=== PATIENT | female | born 1990 | race Caucasian/White ===

== ENCOUNTER 2017-12-29 22:55 | Emergency (ER) | payer OTHER, BC ==
[2017-12-29] MEDS ORDERED: Bupivacaine 0.5% 10 ML SDV INJECT ONE (23:14)
[2017-12-29] MEDS ORDERED: Lidocaine 1% with EPINEPHrine 1:100,000 20 ML MDV INJECT ONE (23:14)
[2017-12-29] MEDS ORDERED: Diphtheria,Pertussis(Acell),Tetanus Vaccine 0.5 ML SDV IM ONE (23:55)
--- NOTE | 2017-12-30 00:09 | EDM.PDOC ---
ED HPI GENERAL MEDICAL PROBLEM - General Chief Complaint: Laceration Stated Complaint: CUT ON LEFT KNEE/WORK RELATED Time Seen by Provider: 12/29/17 23:08 Source of Information: Reports: Patient, Other (Friend) History Limitations: Reports: No Limitations - History of Present Illness INITIAL COMMENTS - FREE TEXT/NARRATIVE: The patient states that she accidentally snagged the medial aspect of her proximal left leg on a piece of metal as she was getting into a van around 22: 40 tonight. She presents with a laceration to her proximal medial left leg. She is otherwise uninjured. The patient believes that her tetanus vaccination is up-to-date. The patient's PCP is in [place]. The patient does not recall their name. 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 ED EXAM, SKIN/RASH Exam: See Below Exam Limited By: No Limitations General Appearance: Alert, WD/WN, No Apparent Distress Extremities: Other (Approximately 1.5 cm linear laceration to the medial proximal left leg. Minimal bleeding. Wound appears to be clean. Neurovascular status of the left lower extremity is intact.) ED SKIN PROCEDURES - Laceration/Wound Repair Left Leg Lac/Wound length In cm: 1.5 Appearance: Subcutaneous, Linear, Clean Distal NVT: Neuro & Vascular Intact, No Tendon Injury Anesthetic Type: Local Local Anesthesia - Lidocaine (Xylocaine): 1% with EPI (50:50 admixture) Local Anesthesia - Bupivicaine (Marcaine): 0.5% Plain (50:50 admixture) Local Anesthetic Volume: 2cc Skin Prep: Providone-Iodine (Betadine) Exploration/Debridement/Repair: Wound Explored, In a Bloodless Field, Explored to Base, No Foreign Material Found, Wound Margins Revised Closed with: Sutures Suture Size: 3-0 # of Sutures: 5 Suture Type: Nylon (Ethilon), Running Drain Placement: No Sterile Dressing Applied: Nurse Tetanus Status Addressed: Yes Complications: No Course - Vital Signs Last Recorded V/S: Last Vital Signs Temp 37.3 C 12/29/17 23:06 Pulse 84 12/29/17 23:06 Resp 16 12/29/17 23:06 BP 136/101 H 12/29/17 23:06 Pulse Ox 100 12/29/17 23:06 - Orders/Labs/Meds Orders: Active Orders 24 hr Category Date Time Status Vaccines to be Administered [RC] PER UNIT ROUTINE Care 12/29/17 23:55 Active Meds: Medications Discontinued Medications Generic Name Dose Route Start Last Admin Trade Name Verito PRN Reason Stop Dose Admin Bupivacaine HCl 10 ml 12/29/17 23:14 12/30/17 00:02 Sensorcaine-Mpf 0.5% INJECT 12/29/17 23:15 10 ml ONETIME ONE Administration Diphtheria/Tetanus/Acell Pertussis 0.5 ml 12/29/17 23:55 12/30/17 00:00 Adacel IM 12/29/17 23:56 0.5 ml .ONCE ONE Administration Lidocaine/Epinephrine 20 ml 12/29/17 23:14 12/30/17 00:02 Xylocaine 1% With Epinephrine 1:100,000 INJECT 12/29/17 23:15 20 ml ONETIME ONE Administration - Re-Assessments/Exams Free Text/Narrative Re-Assessment/Exam: 12/30/17 00:05 The patient reconsidered, and requested a tetanus vaccination. She was given one during this ED visit. The patient's wound was closed with 5 running sutures, using 3-0 Ethilon. She tolerated the procedure well. Wound care instructions were given. Departure - Departure Time of Disposition: 00:06 Disposition: Home, Self-Care 01 Condition: Good Clinical Impression: Laceration of left leg - Discharge Information *PRESCRIPTION DRUG MONITORING PROGRAM REVIEWED*: Not Applicable *COPY OF PRESCRIPTION DRUG MONITORING REPORT IN PATIENT AIDEE: Not Applicable Referrals: PCP,Not In Area [Primary Care Provider] - Forms: ED Department Discharge Additional Instructions: You were seen in the emergency room after cutting your left leg on a piece of metal as you were getting into a van. You received a tetanus vaccination in the ER. Your wound was closed with 5-0 running sutures. Keep the wound clean with ordinary soap and water, however, you should not soak the wound, such as in the bath or by swimming. Pat dry, then leave alone. Do not apply antibiotic ointment. You may put a Band-Aid over the wound, if you wish. If the wound should become dirty, clean and dry it. Take [id number] Tylenol or ibuprofen as needed for discomfort. The sutures should be ready for removal on 01/05/2018, or Friday, 2017. This can be done at a walk-in clinic, by a nurse at your doctor's office, or in an ER. If any other problems, please do not hesitate to return to the ER. - My Orders Last 24 Hours: My Active Orders 12/29/17 23:55 Vaccines to be Administered [RC] PER UNIT ROUTINE - Assessment/Plan Last 24 Hours: My Active Orders 12/29/17 23:55 Vaccines to be Administered [RC] PER UNIT ROUTINE
== END 2017-12-30 00:13 | disposition home or self-care (01) ==
LOC: JD.ED 22:55
DX: S81.812A Laceration without foreign body, left lower leg, initial encounter (principal); W22.8XXA Striking against or struck by other objects, initial encounter; Z23 Encounter for immunization; Z88.6 Allergy status to analgesic agent
CPT/HCPCS: 12001; 90471; 90715; 99283; J3490

== ENCOUNTER 2020-01-13 19:19 | Emergency (ER) | payer BC, OTHER ==
[2020-01-13] MEDS ORDERED: fentaNYL 100 MCG/2 ML SDV IVPUSH ONE ×4 (19:41→23:34)
[2020-01-13] MEDS ORDERED: Ondansetron 4 MG/2 ML SDV IVPUSH ONE ×2 (19:41→23:57)
[2020-01-13] MEDS ORDERED: Dextrose 5%-0.9% NaCl 1,000 ML IV SCH (19:45)
--- NOTE | 2020-01-13 19:46 | EDM.PDOC ---
ED HPI GENERAL MEDICAL PROBLEM - General Chief Complaint: Abdominal Pain Stated Complaint: UPPER ABDOMINAL PAIN FROM WHERE A TUMOR WAS REMOVE Time Seen by Provider: 01/13/20 19:40 Source of Information: Reports: Patient, Family (mother ) History Limitations: Reports: No Limitations - History of Present Illness INITIAL COMMENTS - FREE TEXT/NARRATIVE: 29-year-old female presents to the ED for evaluation of right upper quadrant abdominal pain which is something she experiences intermittently for the last 20 years. 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 She had resection of the largest portion of the tumor in her liver but surgeons were unable to clear her out completely. Intermittently since that time she gets flareups of right upper quadrant abdominal pain with associated nausea and vomiting. She states they usually last to 2- 3 hours and then will go away. Often responds to otrin. Sometimes she is treated with IV antibiotics. She has not been seen by for about 10 years. Pain started yesterday and lasted for good 4 hours or more and then let up for about 8 hours and then returned during the night. Patient today has had constant pain with a colicky component. Associated nausea and vomiting almost nonstop of bilious material with dry heaves. She has not been able to keep anything down today. Denies any diarrhea or constipation. Denies feeling short of breath. No fever. Appreciates some chills with the vomiting episodes. Onset: Sudden Onset Date: 01/12/20 (Developed right upper quadrant abdominal pain yesterday but let up last evening for about 8 hours and then came back. Pain is described as constant but also he does have a colicky component.) Duration: Constant, Getting Worse Location: Reports: Abdomen (Right upper quadrant of the abdomen.) Quality: Reports: Ache, Sharp, Stabbing, Throbbing Severity: Moderate (Colicky component as well) Improves with: Reports: None ( to 10) Worsens with: Reports: None Context: Denies: Activity, Exercise, Lifting, Sick Contact, Trauma, Other Associated Symptoms: Reports: Fever/Chills, Loss of Appetite, Malaise, Nausea/Vomiting, Weakness (Intractable nausea and vomiting for over 12 hours. Generalized weakness). Denies: No Other Symptoms, Confusion, Chest Pain, Cough, cough w sputum, Diaphoresis, Headaches (Chills with vomiting.), Seizure, Shortness of Breath, Syncope Treatments INSURANCE SALESPERSON: Reports: Other (see below) (None.) Right Upper Abdomen Pain Score (Numeric/FACES): 9 - Related Data Allergies Allergy/AdvReac Type Severity Reaction Status Date / Time acetaminophen [From Vicodin] Allergy Severe Vomiting Verified 01/13/20 19:42 hydrocodone [From Vicodin] Allergy Severe Vomiting Verified 01/13/20 19:42 hydromorphone [From Dilaudid] Allergy Severe Vomiting Verified 01/13/20 19:42 meperidine [From Demerol] Allergy Severe Vomiting Verified 01/13/20 19:42 morphine Allergy Severe Vomiting Verified 01/13/20 19:42 oxycodone Allergy Severe Vomiting Verified 01/13/20 19:42 pain medications Allergy Nausea Uncoded 12/29/17 23:05 Home Meds: Home Meds Ondansetron [Zofran] 4 mg BUCCAL Q6H PRN #10 tab 01/13/20 [Rx] Past Medical History - Past Surgical History HEENT Surgical History: Reports: Oral Surgery ([place] teeth extraction) GI Surgical History: Reports: Cholecystectomy, Other (See Below) (With resection of a large tumor from her liver at age 9. 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 Denies: Fever, Weight Loss HEENT: Reports: No Symptoms Respiratory: Reports: No Symptoms Cardiovascular: Reports: No Symptoms Endocrine: Reports: Fatigue GI/Abdominal: Reports: Abdominal Pain (See history of present illness.), Decreased Appetite ( bilious material), Nausea, Vomiting (Intractable nausea and vomiting of) : Reports: No Symptoms Musculoskeletal: Reports: No Symptoms Skin: Reports: No Symptoms Neurological: Reports: No Symptoms Psychiatric: Reports: No Symptoms Hematologic/Lymphatic: Reports: No Symptoms Immunologic: Reports: No Symptoms ED EXAM, GI/ABD - Physical Exam Exam: See Below Exam Limited By: No Limitations General Appearance: Alert, WD/WN, Mild Distress, Other Eyes: Bilateral: Normal Appearance (I feel that she has very mild scleral icterus bilaterally.) Throat/Mouth: Normal Inspection, Normal Lips, Normal Oropharynx, Other (Tongue remains moist.) Neck: Normal Inspection, Supple, Non-Tender, Full Range of Motion. No: Lymphadenopathy (L), Lymphadenopathy (R) Respiratory/Chest: No Respiratory Distress, Lungs Clear, Normal Breath Sounds, Chest Non-Tender Cardiovascular: Normal Peripheral Pulses, Regular Rate, Rhythm, No Edema, No Gallop, No Murmur, No Rub GI/Abdominal Exam: Normal Bowel Sounds, Soft, No Organomegaly, No Abnormal Bruit, No Mass, Tender (Under along the medial right costal margin to the midline where her midline laparotomy extends up to. Appears to be significant scar tissue in this area she is very tender along her scar superior to the umbilicus.) Back Exam: Normal Inspection, Full Range of Motion. No: CVA Tenderness (L), CVA Tenderness (R) Extremities: Normal Inspection, Normal Range of Motion, Non-Tender, No Pedal Edema Neurological: Alert, Oriented, CN II-XII Intact, Normal Cognition Psychiatric: Normal Affect, Normal Mood, Other (She appears to be in a good deal of discomfort.) Skin Exam: Warm, Dry, Intact, Normal Color, No Rash Course - Vital Signs Last Recorded V/S: Last Vital Signs Temp 37.2 C 01/13/20 19:48 Pulse 76 01/13/20 19:48 Resp 28 H 01/13/20 19:48 BP 116/49 L 01/13/20 19:48 Pulse Ox 100 01/13/20 19:48 Orthostatic Blood Pressure [ 119/77 Standing] - Orders/Labs/Meds Orders: Active Orders 24 hr Category Date Time Status Dextrose 5%-0.9% NaCl [Dextrose 5%-Normal Saline] 1,000 Med 01/13/20 19:45 Active ml IV ASDIRECTED Medication Orders Dextrose/Sodium Chloride (Dextrose 5%-Normal Saline) 1,000 mls @ 999 mls/hr IV ASDIRECTED GIVOANI Last Admin: 01/13/20 20:03 Dose: 999 mls/hr Documented by: STACY Labs: Laboratory Tests 01/13/20 01/13/20 01/13/20 Range/Units 20:00 20:00 20:00 WBC 8.86 (3.98-10.04) K/mm3 RBC 4.27 (3.98-5.22) M/mm3 Hgb 12.9 (11.2-15.7) gm/dl Hct 38.4 (34.1-44.9) % MCV 89.9 (79.4-94.8) fl MCH 30.2 (25.6-32.2) pg MCHC 33.6 (32.2-35.5) g/dl RDW Std Deviation 40.8 (36.4-46.3) fL Plt Count 348 (182-369) K/mm3 MPV 10.9 (9.4-12.3) fl Neut % (Auto) 73.4 H (34.0-71.1) % Lymph % (Auto) 18.8 L (19.3-51.7) % Garvin % (Auto) 7.0 (4.7-12.5) % Eos % (Auto) 0.5 L (0.7-5.8) Baso % (Auto) 0.1 (0.1-1.2) % Neut # (Auto) 6.50 H (1.56-6.13) K/mm3 Lymph # (Auto) 1.67 (1.18-3.74) K/mm3 Garvin # (Auto) 0.62 H (0.24-0.36) K/mm3 Eos # (Auto) 0.04 (0.04-0.36) K/mm3 Baso # (Auto) 0.01 (0.01-0.08) K/mm3 Sodium 139 (136-145) mEq/L Potassium 3.4 L (3.5-5.1) mEq/L Chloride 104 (98-107) mEq/L Carbon Dioxide 21 (21-32) mEq/L Anion Gap 17.4 H (5-15) BUN 6 L (7-18) mg/dL Creatinine 0.8 (0.55-1.02) mg/dL Est Cr Clr Drug Dosing 94.36 mL/min Estimated GFR (MDRD) > 60 (>60) mL/min BUN/Creatinine Ratio 7.5 L (14-18) Glucose 89 (74-106) mg/dL Calcium 8.3 L (8.5-10.1) mg/dL Total Bilirubin 1.3 H (0.2-1.0) mg/dL AST 17 (15-37) U/L ALT 14 (14-59) U/L Alkaline Phosphatase 38 L (46-116) U/L C-Reactive Protein 0.6 (<1.0) mg/dL Total Protein 7.1 (6.4-8.2) g/dl Albumin 3.5 (3.4-5.0) g/dl Globulin 3.6 gm/dL Albumin/Globulin Ratio 1.0 (1-2) Lipase 74 (73-393) U/L HCG, Qual Negative (NEGATIVE) Urine Color (Yellow) Urine Appearance (Clear) Urine pH (5.0-8.0) Ur Specific [place] (1.005-1.030) Urine Protein (Negative) Urine Glucose (UA) (Negative) Urine Ketones (Negative) Urine Occult Blood (Negative) Urine Nitrite (Negative) Urine Bilirubin (Negative) Urine Urobilinogen (0.2-1.0) Ur Leukocyte Esterase (Negative) Urine RBC (0-5) /hpf Urine WBC (0-5) /hpf Ur Squamous Epith Cells (0-5) /hpf Urine Bacteria (FEW) /hpf Urine Mucus (FEW) /hpf 07/30/20 Range/Units 22:53 WBC (3.98-10.04) K/mm3 RBC (3.98-5.22) M/mm3 Hgb (11.2-15.7) gm/dl Hct (34.1-44.9) % MCV (79.4-94.8) fl MCH (25.6-32.2) pg MCHC (32.2-35.5) g/dl RDW Std Deviation (36.4-46.3) fL Plt Count (182-369) K/mm3 MPV (9.4-12.3) fl Neut % (Auto) (34.0-71.1) % Lymph % (Auto) (19.3-51.7) % Garvin % (Auto) (4.7-12.5) % Eos % (Auto) (0.7-5.8) Baso % (Auto) (0.1-1.2) % Neut # (Auto) (1.56-6.13) K/mm3 Lymph # (Auto) (1.18-3.74) K/mm3 Garvin # (Auto) (0.24-0.36) K/mm3 Eos # (Auto) (0.04-0.36) K/mm3 Baso # (Auto) (0.01-0.08) K/mm3 Sodium (136-145) mEq/L Potassium (3.5-5.1) mEq/L Chloride (98-107) mEq/L Carbon Dioxide (21-32) mEq/L Anion Gap (5-15) BUN (7-18) mg/dL Creatinine (0.55-1.02) mg/dL Est Cr Clr Drug Dosing mL/min Estimated GFR (MDRD) (>60) mL/min BUN/Creatinine Ratio (14-18) Glucose (74-106) mg/dL Calcium (8.5-10.1) mg/dL Total Bilirubin (0.2-1.0) mg/dL AST (15-37) U/L ALT (14-59) U/L Alkaline Phosphatase (46-116) U/L C-Reactive Protein (<1.0) mg/dL Total Protein (6.4-8.2) g/dl Albumin (3.4-5.0) g/dl Globulin gm/dL Albumin/Globulin Ratio (1-2) Lipase (73-393) U/L HCG, Qual (NEGATIVE) Urine Color Yellow (Yellow) Urine Appearance Clear (Clear) Urine pH 7.0 (5.0-8.0) Ur Specific [place] 1.020 (1.005-1.030) Urine Protein Negative (Negative) Urine Glucose (UA) 2+ H (Negative) Urine Ketones 2+ H (Negative) Urine Occult Blood Negative (Negative) Urine Nitrite Negative (Negative) Urine Bilirubin Negative (Negative) Urine Urobilinogen 0.2 (0.2-1.0) Ur Leukocyte Esterase Negative (Negative) Urine RBC 0-5 (0-5) /hpf Urine WBC 0-5 (0-5) /hpf Ur Squamous Epith Cells 5-10 H (0-5) /hpf Urine Bacteria Few (FEW) /hpf Urine Mucus Few (FEW) /hpf Meds: Medications Generic Name Dose Route Start Last Admin Trade Name Verito PRN Reason Stop Dose Admin Dextrose/Sodium Chloride 1,000 mls @ 999 mls/hr 01/13/20 19:45 01/13/20 20:03 Dextrose 5%-Normal Saline IV 999 mls/hr ASDIRECTED GIOVANI Administration Discontinued Medications Generic Name Dose Route Start Last Admin Trade Name Verito PRN Reason Stop Dose Admin Fentanyl 50 mcg 01/13/20 19:41 01/13/20 20:05 Sublimaze IVPUSH 01/13/20 19:42 50 mcg ONETIME ONE Administration Fentanyl 100 mcg 01/13/20 21:10 01/13/20 21:30 Sublimaze IVPUSH 01/13/20 21:11 100 mcg ONETIME ONE Administration Fentanyl 100 mcg 01/13/20 21:56 01/13/20 22:05 Sublimaze IVPUSH 01/13/20 21:57 100 mcg ONETIME ONE Administration Fentanyl 50 mcg 01/13/20 23:34 01/13/20 23:42 Sublimaze IVPUSH 01/13/20 23:35 50 mcg ONETIME ONE Administration Fentanyl Confirm 01/13/20 23:33 01/13/20 23:42 Sublimaze Administered 01/13/20 23:34 Not Given Dose 100 mcg .ROUTE .STK-MED ONE Promethazine HCl 25 mg/ Sodium 51 mls @ 100 mls/hr 01/13/20 21:10 01/13/20 21:30 Chloride IV 01/13/20 21:40 100 mls/hr ONETIME ONE Administration Ceftriaxone Sodium 1 gm/ 100 mls @ 200 mls/hr 01/13/20 22:19 01/13/20 22:25 Sodium Chloride IV 01/13/20 22:48 200 mls/hr ONETIME ONE Administration Ondansetron HCl 4 mg 01/13/20 19:41 01/13/20 20:03 Zofran IVPUSH 01/13/20 19:42 4 mg ONETIME ONE Administration Ondansetron HCl 4 mg 01/13/20 23:57 01/14/20 00:03 Zofran IVPUSH 01/13/20 23:58 4 mg ONETIME ONE Administration - Radiology Interpretation Free Text/Narrative:: 29 year old female presents to the ED with RUQ abdominal pain and associated nausea and vomiting for the last 18 hrs . She has a history of similar type of problems off and on for 20 years. History of resection of a tumor from her liver at age 9--lymphangioma ? . Reports chills with vomiting. Afebrile on exam. Diffuse midline epigastric pain along her scar . Bowl sounds presents in all four quadrants. Plan: D5NS at open. Fentanyl 50mcg IV with Zofran 4mg IV. Routine labs. - Re-Assessments/Exams Free Text/Narrative Re-Assessment/Exam: 01/13/20 20:22 Patient is feeling better after initial dose of Zofran 4mg and Fentanyl 50mcg IV. 01/13/20 21:07 White blood cell count is 8.86 with 73.4% neutrophils no bands cells noted. Hemoglobin is 12.9 with hematocrit of 38.4. Platelet count 348,000. Sodium 139 potassium slightly low at 3.4. Chloride 104 with a bicarb of 21. Anion gap is mildly elevated at 17.4. BUN is 6 with a creatinine of 0.8. GFR is greater than 60. Glucose is 89 with a calcium of 8.3. Total bilirubin is 1.3 AST is 17 ALT is 14 alk phosphatase is 38. C-reactive protein 0.6. Total protein 7.1 with a note with an albumin fraction of 3.5. hCG is negative. Once again has started to dry heave and vomit due to pain. Fentanyl likely has worn off as it has a half-life of only 40 minutes or so. Unfortunately she is allergic to all of the longer acting narcotics. Plan we will give her Phenergan 25 mg IV with repeat dose of fentanyl this time at 100 mcg dose. 01/13/20 21:57 Patient continues to arrive with abdominal pain. Did not seem to get much relief with the initial dose of 100 mcg of fentanyl. Phenergan has just about been completely infused. Plan : will give Rocephin 1gm IV as this has been used per [facility] protocol in the past for her. Reasoning poorly understood. 01/13/20 22:54 Patient has completed Rocephin 1 g IV. She remains very drowsy after receiving the Phenergan 25 mg IV and has had no further dry heaves. O2 sats remain remain around 96 to 97% on room air. Because of her sensitivity to all analgesics to gain continuous pain control she would require a fentanyl drip. I do not have this availability in our hospital. She is from [place] and with her mother and prepared to return to [place] for care. She has been cared for at [facility] in the past but has not required any hospitalization since she was a teenager. Will be discharged in the care of her mother and father who will provide transport. 01/13/20 23:34 Patient is less drowsy now. She has been up to the bathroom with assistance. Once again the pain has recurred and is quite severe. Will repeat fentanyl 50 mcg IV at this time. 01/13/20 23:47 Her abdominal pain syndrome is failing to respond to Fentanyl intermittently. Nausea is better. It appears that she is going to require hospitalization and parents prefer to take her to [facility] in [place] where she has been admitted in the past and they have records on her. Apparently she was treated with a fentanyl drip in the past for pain relief. Typically pain will last 1 to 2 days but has lasted as long as 9 days in the past. 01/13/20 23:58 I was unable to speak with 1 call nurse at [facility] in [place] due to her being involved in other activities. She will call me back when she is less busy. I did tell the mother this was the reason for the delay. Unfortunately Kaylie is continued to dry heave. We will give her Zofran 4 mg IV since the Phenergan does not seem to be controlling the nausea and vomiting. Departure - Departure Time of Disposition: 23:56 Disposition: Home, Self-Care 01 Condition: Fair Clinical Impression: Intractable nausea and vomiting, Lymphangiomatosis Abdominal pain Qualifiers: Abdominal location: epigastric Qualified Code(s): R10.13 - Epigastric pain - Discharge Information *PRESCRIPTION DRUG MONITORING PROGRAM REVIEWED*: Not Applicable *COPY OF PRESCRIPTION DRUG MONITORING REPORT IN PATIENT AIDEE: Not Applicable Prescriptions: Ondansetron [Zofran] 4 mg BUCCAL Q6H PRN #10 tab PRN Reason: nausea or vomiting Referrals: Rosemarie Owusu MD [Primary Care Provider] - Forms: ED Department Discharge Additional Instructions: Evaluation in the emergency room in regards to persistent right upper quadrant epigastric abdominal pain with associated intractable nausea and vomiting for the last 24 hours. 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 Previous surgical procedure at the [facility] at age 9 to debulk the tumor. Casually get into similar problems like you are experiencing the last 24 hours. Lab work done here does not reveal any abnormalities. Studies may well need to be done with CT of the abdomen and chest if problems and pain persist. You have received multiple doses of fentanyl intravenously as well as medication Zofran 4 mg IV x2 doses and Phenergan 25 mg intravenously for relief of nausea and vomiting. This is met with very minimal success in terms of pain control and/or nausea and vomiting relief for very long. It appears that you are likely going to need to be admitted to the hospital and since you are from [place] you wish to return to [facility] for care. Please travel to the emergency department at [facility] for tentative admission to the hospital. Sepsis Event Note (ED) - Focused Exam Vital Signs: Vital Signs Temp Pulse Resp BP Pulse Ox 01/13/20 19:48 37.2 C 76 28 H 116/49 L 100 - My Orders Last 24 Hours: My Active Orders 01/13/20 19:45 Dextrose 5%-0.9% NaCl [Dextrose 5%-Normal Saline] 1,000 ml IV ASDIRECTED - Assessment/Plan Last 24 Hours: My Active Orders 01/13/20 19:45 Dextrose 5%-0.9% NaCl [Dextrose 5%-Normal Saline] 1,000 ml IV ASDIRECTED
[2020-01-13] MEDS ORDERED: Promethazine 25 MG in Sodium Chloride 0.9% 50 ML IV ONE (21:10)
[2020-01-13] MEDS ORDERED: cefTRIAXone 1 GM in Sodium Chloride 0.9% 100 ML IV ONE (22:19)
[2020-01-13] MEDS ORDERED: fentaNYL 100 MCG/2 ML SDV ONE (23:33)
== END 2020-01-14 00:31 | disposition home or self-care (01) ==
LOC: JD.ED 19:19
DX: D18.1 Lymphangioma, any site (principal); Z88.5 Allergy status to narcotic agent; Z88.8 Allergy status to other drugs, medicaments and biological substances
CPT/HCPCS: 36415; 80053; 81001; 83690; 84703; 85025; 86140; 96361; 96365; 96367; 96375; 96376; 99284; J0696; J2405; J2550; J3010; J7042; J7050